=== PATIENT | male | born 1965 | race Caucasian/White ===

== ENCOUNTER 2017-10-09 21:58 | Emergency (ER) | payer BC ==
[2017-10-09] MEDS ORDERED: Sodium Chloride 0.9% 1000 ML 1,000 ML IV STA ×2 (22:24→23:52)
--- NOTE | 2017-10-09 22:42 | ERPHSYRPT ---
- History of Present Illness Time Seen by Provider: 10/09/17 23:34 Patient Subjective Stated Complaint: pt is alert and oriented. pt is brought in by his via wheelchair. pt is a cancer pt. diagnosed with colon cancer in March 2012. diagnosed with metastatic colon cancer in January 2015. he has tumors in his lungs, neck, brain. pt was told he was terminal but family is seeking a second opinion. no chemo is being done at this time and last chemo treatment was in September 2016. pt is weak. cannot lift arms or legs. pt skin is clammy, pale. pt states he has had a cold since thursday. anterior expiratory wheezes noted on right middle lobe. pt has colostomy LLQ. bowel sounds present x4. Triage Nursing Assessment: see above Physician History: 52-year-old male came to the emergency room with complaining of generalized weakness and lethargic for last 3-4 days. Patient has a history of metastatic colon cancer diagnosed in 2012. Patient has not undergone recently chemotherapy and patient has been asking for second opinion. Patient has not been able to eat or drink anything for last few days. Patient denies any fever, chills, but complaining of generalized weakness. Timing/Duration: day(s) (4-5 days) Associated Symptoms: loss of appetite, malaise, weakness Allergies/Adverse Reactions: Penicillins Allergy (Mild, Verified 10/31/11 13:45) aprepitant [From Emend] Adverse Reaction (Verified 10/09/17 22:26) fosaprepitant [From Emend] Adverse Reaction (Verified 10/09/17 22:26) Home Medications: Dexamethasone 2 mg PO DAILY 10/09/17 [History] Duloxetine HCl 30 mg [Cymbalta 30 MG Capsule] 60 mg PO HS 10/09/17 [ History] Hydrochlorothiazide 25 mg [hydroDIURIL 25 MG] 25 mg PO DAILY 10/09/17 [ History] Nebivolol HCl 5 MG [Bystolic 5 MG] 5 mg PO DAILY 10/09/17 [History] Hx Tetanus, Diphtheria Vaccination/Date Given: No (UNSURE) Immunizations Up to Date: Yes - Review of Systems Constitutional: Fever, Chills, Lethargy, Weakness Eyes: Eye Redness Respiratory: Cough, No Dyspnea Cardiac: No Chest Pain, No Edema, No Syncope Abdominal/Gastrointestinal: No Abdominal Pain, No Nausea, No Vomiting, No Diarrhea Genitourinary Symptoms: No Dysuria Musculoskeletal: No Back Pain, No Neck Pain Skin: No Rash Neurological: No Dizziness, No Focal Weakness, No Sensory Changes Psychological: No Symptoms Endocrine: No Symptoms All Other Systems: Reviewed and Negative - Past Medical History Pertinent Past Medical History: Yes Neurological History: No Pertinent History ENT History: No Pertinent History Cardiac History: Hypertension Respiratory History: No Pertinent History Endocrine Medical History: No Pertinent History Musculoskeletal History: No Pertinent History GI Medical History: Colorectal Cancer History: No Pertinent History Psycho-Social History: No Pertinent History Male Reproductive Disorders: No Pertinent History Other Medical History: metastatic colon cancer. - Past Surgical History Past Surgical History: Yes Neuro Surgical History: No Pertinent History Cardiac: No Pertinent History Respiratory: No Pertinent History Gastrointestinal: No Pertinent History Genitourinary: No Pertinent History Musculoskeletal: No Pertinent History Male Surgical History: No Pertinent History Other Surgical History: HAND SURGERY, tumor removed from lung, colon, neck. - Social History Smoking Status: Former smoker Exposure to second hand smoke: No Drug Use: none Patient Lives Alone: No - Nursing Vital Signs Nursing Vital Signs: Initial Vital Signs Temperature 100.2 F 10/09/17 21:59 Pulse Rate 133 H 10/09/17 21:59 Respiratory Rate 20 10/09/17 21:59 Blood Pressure 72/60 10/09/17 21:59 O2 Sat by Pulse Oximetry 94 L 10/09/17 21:59 Pain Scale Pain Intensity 9 - Physical Exam General Appearance: mild distress, alert Eye Exam: PERRL/EOMI, eyes nml inspection, other (purulent eye discharge) Ears, Nose, Throat Exam: normal ENT inspection, TMs normal, pharynx normal, moist mucous membranes Neck Exam: normal inspection, non-tender, supple, full range of motion Respiratory Exam: diminished breath sounds, crackles/rales, rhonchi, wheezing, No respiratory distress Cardiovascular Exam: regular rate/rhythm, normal heart sounds, normal peripheral pulses Gastrointestinal/Abdomen Exam: soft, normal bowel sounds, other (colostomy in place, functioning), No tenderness, No mass Back Exam: normal inspection, normal range of motion, No CVA tenderness, No vertebral tenderness Extremity Exam: normal inspection, normal range of motion, pelvis stable Neurologic Exam: alert, oriented x 3, cooperative, normal mood/affect, nml cerebellar function, nml station & gait, sensation nml, No motor deficits Skin Exam: normal color, warm, dry, No rash Lymphatic Exam: No adenopathy SpO2: 94 Oxygen Delivery: Room Air - Course Nursing assessment & vital signs reviewed: Yes - Radiology Exams Chest X-ray Interpretation: Reviewed by me (left lower lobe infiltrate) Ordered Tests: Active Orders 24 hr Category Date Time Status CHEST 1 VIEW (PORTABLE) Stat Exams 10/09/17 22:24 Taken AMYLASE Stat Lab 10/09/17 22:56 Completed CBC W DIFF Stat Lab 10/09/17 22:56 Completed CMP Stat Lab 10/09/17 22:56 Completed Lactic Acid Stat Lab 10/09/17 23:10 Results Manual Differential NC Stat Lab 10/09/17 22:56 Completed UA W/RFX UR CULTURE Stat Lab 10/09/17 22:24 Uncollected Medication Summary Generic Name Dose Route Start Last Admin Trade Name Freq PRN Reason Stop Dose Admin Levofloxacin/Dextrose 750 mg in 150 mls @ 100 mls/hr 10/09/17 23:07 10/09/17 23:38 Levofloxacin 750mg/150ml D5w IV 10/10/17 00:36 100 mls/hr STAT STA 100 mls/hr Administration Discontinued Medications Generic Name Dose Route Start Last Admin Trade Name Freq PRN Reason Stop Dose Admin Sodium Chloride 1,000 mls @ 999 mls/hr 10/09/17 22:24 10/09/17 23:05 Sodium Chloride 0.9% 1000 Ml IV 10/09/17 23:24 999 mls/hr .Q1H1M STA Administration Sodium Chloride Confirm 10/09/17 23:03 Sodium Chloride 0.9% 1000 Ml Administered 10/09/17 23:04 Dose 1,000 mls @ ud .ROUTE .STK-MED ONE Levofloxacin/Dextrose Confirm 10/09/17 23:33 Levofloxacin 750mg/150ml D5w Administered 10/09/17 23:34 Dose 750 mg in 150 mls @ ud IV .STK-MED ONE Lab/Rad Data: Laboratory Result Diagrams 10/09/17 22:56 10/09/17 22:56 Laboratory Results 10/09/17 10/09/17 10/09/17 Range/Units 23:10 22:56 22:56 WBC 21.6 H (4.0-10.5) K/mm3 RBC 3.73 L (4.1-5.6) M/mm3 Hgb 11.1 L (12.5-18.0) gm/dl Hct 34.2 L (42-50) % MCV 91.7 (78-100) fl MCH 29.7 (26-32) pg MCHC 32.5 (32-36) g/dl RDW 16.9 H (11.5-14.0) % Plt Count 291 (150-450) K/mm3 MPV 9.5 (6-9.5) fl Absolute Granulocytes 18.85 H (1.4-6.9) Segmented Neutrophils 74 H (36.-66.) % Band Neutrophils 12 H (0.0-2.0) % Lymphocytes (Manual) 5 L (24-44) % Monocytes (Manual) 9 (0.0-12.0) % Dohle Bodies 1+ Sodium 135 L (137-145) mmol/L Potassium 3.5 (3.5-5.1) mmol/L Chloride 95 L (98-107) mmol/L Carbon Dioxide 30 (22-30) mmol/L Anion Gap 13.6 (5-15) MEQ/L BUN 38 H (9-20) mg/dL Creatinine 1.47 H (0.66-1.25) mg/dL Estimated GFR 53.9 ML/MIN Glucose 184 H (74-106) mg/dL Lactic Acid 2.4 H (0.4-2.0) Calcium 9.4 (8.4-10.2) mg/dL Total Bilirubin 0.90 (0.2-1.3) mg/dL AST 52 (17-59) U/L ALT 68 H (0-50) U/L Alkaline Phosphatase 107 (38-126) U/L Serum Total Protein 6.7 (6.3-8.2) g/dL Albumin 3.6 (3.5-5.0) g/dL Amylase 62 (30-110) U/L - Progress Progress: unchanged Discussed with DrИрина: Other (Dr woodson) Will see patient in: hospital (full admit) Counseled pt/family regarding: lab results, diagnosis, need for follow-up, rad results - Departure Time of Disposition: 23:51 Departure Disposition: Transfer Clinical Impression: Pneumonia due to anaerobic bacteria, Sepsis associated hypotension Condition: Stable Critical Care Time: Yes Critical Care Time(excluding separately billable procedures): 30-74 minutes Referrals: ERIKA LINDSEY MD [Primary Care Provider] - Instructions: Pneumonia, Adult (DC)
[2017-10-09 23:00] LABS: Granulocyte Absolute (ANC) 18.85 (1.4-6.9); Hematocrit 34.2 % (42-50); Hemoglobin 11.1 gm/dl (12.5-18.0); Mean Cell Volume 91.7 fl (78-100); Mean Corpuscular Hgb Concent. 32.5 g/dl (32-36); Mean Platelet Volume 9.5 fl (6-9.5); Platelet Count 291 K/mm3 (150-450); Red Blood Count 3.73 M/mm3 (4.1-5.6); Red Cell Distribution Width 16.9 % (11.5-14.0); White Blood Count 21.6 K/mm3 (4.0-10.5)
[2017-10-09 23:01] LABS: Mean Corpuscular Hemoglobin 29.7 pg (26-32)
[2017-10-09] MEDS ORDERED: Sodium Chloride 0.9% 1000 ML 1,000 ML ONE ×2 (23:03→23:59)
[2017-10-09] MEDS ORDERED: LEVOFLOXACIN 750MG/150ML D5W 750 MG/150 ML BAG IV STA (23:07)
[2017-10-09 23:16] LABS: ALBUMIN 3.6 g/dL (3.5-5.0); ANION GAP 13.6 MEQ/L (5-15); BILIRUBIN,TOTAL 0.9 mg/dL (0.2-1.3); Calcium 9.4 mg/dL (8.4-10.2); Creatinine 1 1.47 mg/dL (0.66-1.25); Potassium 3.5 mmol/L (3.5-5.1); Total Protein 6.7 g/dL (6.3-8.2)
[2017-10-09 23:33] LABS: Lactic Acid 2.4 (0.4-2.0)
[2017-10-09 23:33] LABS: BAND 12 % (0.0-2.0); Dohle Bodies 1+; Lymphocytes 5 % (24-44); Monocyte 9 % (0.0-12.0); Neutrophils 74 % (36.-66.); Total Cells Counted 100
[2017-10-09] MEDS ORDERED: LEVOFLOXACIN 750MG/150ML D5W 750 MG/150 ML BAG IV ONE (23:33)
[2017-10-09] MEDS ORDERED: MOTRIN 600 MG PO ONE (23:53)
[2017-10-09] MEDS ORDERED: MOTRIN 600 MG ONE (23:59)
[2017-10-10] MEDS ORDERED: MOTRIN 600 MG PO ONE (00:05)
[2017-10-10] MEDS ORDERED: MORPHINE SULFATE 4 MG INJ IV ONE (00:31)
[2017-10-10] MEDS ORDERED: MORPHINE SULFATE 4 MG INJ ONE (00:39)
[2017-10-10] MEDS ORDERED: Sodium Chloride 0.9% 1000 ML 1,000 ML ONE (01:00)
[2017-10-10] MEDS ORDERED: Sodium Chloride 0.9% 1000 ML 1,000 ML IV SCH (01:15)
[2017-10-10 01:24] VITALS: BP 120/77; PULSE 114; O2SAT 95
[2017-10-10 05:34] LABS: Platelet Estimate NORMAL (NORMAL)
--- NOTE | 2017-10-10 06:09 | XRAY ---
Indication: Weakness. History of metastatic colon cancer. Comparison: None Portable chest demonstrates left mid to lower lung infiltrate/atelectasis/effusion and probable bilateral metastatic nodules. Heart is not enlarged with right-sided Port-A-Cath. Bony thorax intact with previous cervical thoracic junction fusion surgery.
== END 2017-10-10 01:05 | disposition short-term general hospital (02) ==
LOC: ED 21:58
DX: A41.9 Sepsis, unspecified organism (principal); J15.8 Pneumonia due to other specified bacteria; C78.5 Secondary malignant neoplasm of large intestine and rectum; R53.1 Weakness; I95.9 Hypotension, unspecified; Z79.899 Other long term (current) drug therapy; I10 Essential (primary) hypertension
CPT/HCPCS: 36415; 71045; 80053; 82150; 83605; 85025; 96360; 96361; 96365; 99284; J1956; J2270; A9270-GY